=== PATIENT | female | born 1950 | race Caucasian/White ===

== ENCOUNTER 2016-08-01 | Outpatient (CLI) | payer MEDICARE, OTHER | END 2016-08-01 13:03 | disposition critical access hospital (66) | CPT/HCPCS: A0425; A0429 ==

== ENCOUNTER 2016-08-06 11:01 | Inpatient (IN) | payer MEDICARE, OTHER ==
[~2016-08-06 11:01] MED LIST: ceFAZolin 2 GM/50 ML 50 ML IV ONE
[2016-08-06] MEDS ORDERED: LACTATED RINGERS 1,000 ML IV ONE ×2 (11:16→18:13)
[2016-08-06] MEDS ORDERED: INSULIN REGULAR HUMAN 100 UNIT/1 ML 10 ML MDV ONE ×2 (15:19→17:05)
[2016-08-06] MEDS ORDERED: ROPIVACAINE 0.5% PF 20 ML AMPULE EP ONE (18:10)
[2016-08-06] MEDS ORDERED: fentaNYL 250 MCG/5 ML VIAL IVP ONE (18:10)
[2016-08-06] MEDS ORDERED: MIDAZOLAM 2 MG/2 ML VIAL IVP ONE (18:10)
[2016-08-06] MEDS ORDERED: ONDANSETRON 4 MG/2 ML VIAL IVP ONE (18:10)
[2016-08-06] MEDS ORDERED: LIDOCAINE-MPF 2% 5 ML VIAL IM ONE (18:10)
[2016-08-06] MEDS ORDERED: ACETAMINOPHEN 1,000 MG/100 ML VIAL IV ONE (18:10)
[2016-08-06] MEDS ORDERED: PROPOFOL 200 MG/20 ML VIAL IVP ONE (18:10)
[2016-08-06] MEDS ORDERED: KETOROLAC 30 MG/ML VIAL IVP ONE (18:10)
[2016-08-06] MEDS ORDERED: BUPIVACAINE 0.25%-EPI 1:200000 PF 30 ML VIAL SUBQ ONE ×2 (18:11)
[2016-08-06] MEDS ORDERED: LIDOCAINE 1% 50 ML MDV SUBQ ONE ×2 (18:12)
[2016-08-06] MEDS ORDERED: ACETAMINOPHEN 325 MG TABLET PO PRN (19:57)
[2016-08-06] MEDS ORDERED: PROCHLORPERAZINE 10 MG/2 ML VIAL IVP PRN (19:57)
[2016-08-06] MEDS ORDERED: SODIUM CHLORIDE FLUSH 0.9% 10 ML SYRINGE IVP PRN (19:57)
[2016-08-06] MEDS ORDERED: ONDANSETRON 4 MG/2 ML VIAL IVP PRN (19:57)
[2016-08-06] MEDS ORDERED: ACETAMINOPHEN 1,000 MG/100 ML 100 ML IV PRN (19:57)
[2016-08-06] MEDS ORDERED: GLUCAGON 1 MG/ML VIAL SUBQ PRN ×2 (20:02→21:11)
[2016-08-06] MEDS ORDERED: DEXTROSE GEL 37.5 GM TUBE PO PRN ×2 (20:02→21:11)
[2016-08-06] MEDS ORDERED: DEXTROSE 5% 1,000 ML IV PRN ×2 (20:02→21:11)
[2016-08-06] MEDS ORDERED: DEXTROSE 50% ABBOJECT 25 GM/50 ML SYRINGE IVP PRN ×2 (20:02→21:11)
[2016-08-06] MEDS ORDERED: NITROGLYCERIN SL 0.4 MG TABLET SL PRN (20:04)
[2016-08-06] MEDS: SODIUM CHLORIDE 0.9% 1,000 ML IV SCH (21:12)
[2016-08-06] MEDS: ceFAZolin 2 GM/50 ML 50 ML IV SCH (21:12)
[2016-08-06] MEDS: SODIUM CHLORIDE FLUSH 0.9% 10 ML SYRINGE IVP SCH (21:58)
[2016-08-07] MEDS: oxyCOD/ACETAMIN 5 MG/325 MG TABLET PO PRN ×2 (01:31→11:43)
[2016-08-07] MEDS: ceFAZolin 2 GM/50 ML 50 ML IV SCH (04:28)
[2016-08-07] MEDS: SODIUM CHLORIDE 0.9% 1,000 ML IV SCH ×2 (04:28→16:17)
[2016-08-07] MEDS: SODIUM CHLORIDE FLUSH 0.9% 10 ML SYRINGE IVP SCH ×3 (06:13→20:27)
[2016-08-07] MEDS: PANTOPRAZOLE 40 MG TABLET PO SCH (06:55)
[2016-08-07] MEDS: HYDROmorphone 1 MG/ML SYRINGE IVP PRN ×3 (06:57→21:02)
[2016-08-07] MEDS ORDERED: INSULIN GLULISINE SQ SCH (07:00)
[2016-08-07] MEDS ORDERED: INSULIN ASPART 300 UNIT/3 ML PEN SUBQ ONE (08:56)
[2016-08-07] MEDS ORDERED: APIDRA SUBQ ONE (09:00)
[2016-08-07] MEDS ORDERED: NON FORMULARY MED (Omeprazole [Omeprazole] 20 MG) PO SCH (09:00)
[2016-08-07] MEDS ORDERED: METOPROLOL SUCCINATE 25 MG TABLET PO SCH ×2 (09:00→21:00)
[2016-08-07] MEDS ORDERED: ATORVASTATIN 10 MG TABLET PO SCH ×2 (09:00→21:00)
[2016-08-07] MEDS ORDERED: IRBESARTAN 150 MG PO SCH (09:00)
[2016-08-07] MEDS ORDERED: INSULIN GLARGINE 300 UNIT/3 ML PEN SUBQ SCH (09:00)
[2016-08-07] MEDS ORDERED: ROSUVASTATIN 10 MG PO SCH (09:00)
[2016-08-07] MEDS: INSULIN ASPART 300 UNIT/3 ML PEN SUBQ SCH ×4 (09:10→12:58)
[2016-08-07] MEDS: Ubidecarenone [Co Q-10] 100 MG PO SCH (09:11)
[2016-08-07] MEDS: OMEGA-3 ACID ETHYL ESTERS 1 GM CAPSULE PO SCH (09:23)
[2016-08-07] MEDS: MULTIVITAMIN TABLET PO SCH (09:23)
[2016-08-07] MEDS: POLYETHYLENE GLYCOL 3350 17 GM PACKET PO SCH (09:23)
[2016-08-07] MEDS: LOSARTAN 50 MG TABLET PO SCH (09:23)
[2016-08-07] MEDS: amLODIPine 5 MG TABLET PO SCH (09:23)
[2016-08-07] MEDS ORDERED: INSULIN GLULISINE SQ ONE (11:35)
[2016-08-07] MEDS: INSULIN GLULISINE SUBQ SCH (17:11)
[2016-08-08] MEDS: SODIUM CHLORIDE 0.9% 1,000 ML IV SCH ×2 (00:46→12:04)
[2016-08-08] MEDS: oxyCOD/ACETAMIN 5 MG/325 MG TABLET PO PRN ×2 (00:48→12:55)
[2016-08-08] MEDS: SODIUM CHLORIDE FLUSH 0.9% 10 ML SYRINGE IVP SCH (06:25)
[2016-08-08] MEDS: PANTOPRAZOLE 40 MG TABLET PO SCH (06:33)
[2016-08-08] MEDS: INSULIN GLULISINE SUBQ SCH ×2 (08:46→12:03)
[2016-08-08] MEDS: OMEGA-3 ACID ETHYL ESTERS 1 GM CAPSULE PO SCH (08:46)
[2016-08-08] MEDS: LOSARTAN 50 MG TABLET PO SCH (08:47)
[2016-08-08] MEDS: MULTIVITAMIN TABLET PO SCH (08:47)
[2016-08-08] MEDS: amLODIPine 5 MG TABLET PO SCH (08:49)
[2016-08-08] MEDS: POLYETHYLENE GLYCOL 3350 17 GM PACKET PO SCH (08:50)
[2016-08-08] MEDS: Ubidecarenone [Co Q-10] 100 MG PO SCH (08:50)
[2016-08-08] MEDS ORDERED: DOCUSATE SODIUM 250 MG CAPSULE PO SCH (09:00)
[2016-08-08] MEDS ORDERED: INSULIN GLARGINE 300 UNIT/3 ML PEN SUBQ SCH (09:00)
[2016-08-08] MEDS ORDERED: METOPROLOL SUCCINATE 25 MG TABLET PO SCH (09:00)
[2016-08-08] MEDS ORDERED: ESCITALOPRAM 10 MG TABLET PO SCH (09:00)
[2016-08-08] MEDS ORDERED: SENNA 8.6 MG TABLET PO SCH (09:00)
[2016-08-08] MEDS ORDERED: ASPIRIN EC 81 MG TABLET PO SCH (09:00)
[2016-08-08] MEDS ORDERED: INSULIN GLULISINE SQ ONE (11:46)
== END 2016-08-08 12:30 | disposition home or self-care (01) | DRG 494 ==
PROC: 0QSK04Z Reposition Left Fibula with Internal Fixation Device, Open Approach (ICD-10-PCS; principal; 2016-08-06 12:15)
PROC: 0QSH04Z Reposition Left Tibia with Internal Fixation Device, Open Approach (ICD-10-PCS; principal; 2016-08-06 12:15)
DX: S82.852A Displaced trimalleolar fracture of left lower leg, initial encounter for closed fracture (principal); E86.0 Dehydration; E11.9 Type 2 diabetes mellitus without complications; I10 Essential (primary) hypertension; E78.5 Hyperlipidemia, unspecified; E11.65 Type 2 diabetes mellitus with hyperglycemia; I25.10 Atherosclerotic heart disease of native coronary artery without angina pectoris; Z95.5 Presence of coronary angioplasty implant and graft; K21.9 Gastro-esophageal reflux disease without esophagitis; E66.9 Obesity, unspecified; Z87.440 Personal history of urinary (tract) infections; Z79.4 Long term (current) use of insulin; Z79.82 Long term (current) use of aspirin; Z68.33 Body mass index [BMI] 33.0-33.9, adult

== ENCOUNTER 2016-09-28 16:12 | Outpatient (CLI) | payer MEDICARE, OTHER | END 2016-09-28 16:13 | disposition home or self-care (01) | DX: M51.36 Other intervertebral disc degeneration, lumbar region (principal); M47.896 Other spondylosis, lumbar region; M41.86 Other forms of scoliosis, lumbar region ==

== ENCOUNTER 2016-10-21 08:26 | Outpatient (CLI) | payer MEDICARE, OTHER ==
[2016-10-21 08:38] LABS: CREATININE 0.7 mg/dL (0.4-1.0)
--- NOTE | 2016-10-21 18:57 | CT Report ---
CT OF THE LUMBAR SPINE: 10/21/2016 CLINICAL HISTORY: This is a 66-year-old female with left sciatica. COMPARISON: None. TECHNIQUE: CT of the lumbar spine was done with axial, sagittal, and coronal reconstruction images done at 2 mm intervals. FINDINGS: As an incidental finding, a large hiatal hernia is seen in the inferior mediastinum. T10-T11 shows disk space narrowing without significant disk bulge or protrusion. Neural foramen are normal. T11-T12 showed disk space narrowing without significant disk abnormality. Neural foramen appear normal. T12-L1 demonstrates significant disk space narrowing. No significant disk abnormality is noted. Neural foramen appear normal. L1-L2 demonstrates significant disk space narrowing without significant disk bulge or herniation. Neural foramen appear normal. L2-L3 level demonstrates significant disk space narrowing. Mild broad-based disk bulge is noted. This produces a minimal indentation on the adjacent dural sac. Mild posterior spinal ligament thickening. No significant central spinal canal stenosis is noted. Mild narrowing of the facet joints is seen. L3-L4 level demonstrates moderate degree of disk space narrowing. Moderate- sized broad-based disk bulge is noted extending into the neural foramen. Mild posterior spinal ligament thickening is seen. Combination of findings is producing a moderate to severe degree of central spinal canal stenosis. Mild to moderate narrowing of the right neural foramen is seen with mild narrowing of the left neural foramen. Mild osteoarthritis is seen of the facet joints. L4-L5 level demonstrates no significant disk space narrowing. There is mild to moderate broad-based disk bulge with extensive posterior spinal ligament thickening. Combination of findings produces severe central spinal canal stenosis with marked compression of the dural sac. Right neural foramen shows no significant narrowing. Left neural foramen shows mild to moderate narrowing. Facet joints demonstrate a moderate degree of right facet joint narrowing. L5-S1 level demonstrates a minimal broad-based disk bulge. This does not appear to be affecting the adjacent nerve rootlets. Neural foramen bilaterally appear normal. Facet joints show mild osteoarthritis with mild narrowing. IMPRESSION: 1. L3-4 LEVEL DEMONSTRATES A MODERATE TO SEVERE CENTRAL SPINAL CANAL STENOSIS. 2. L4-5 LEVEL DEMONSTRATES SEVERE CENTRAL SPINAL CANAL STENOSIS WITH MARKED COMPRESSION OF THE DURAL SAC. 3. MILD OSTEOARTHRITIS OF THE FACET JOINTS IS NOTED IN THE LUMBAR SPINE. 4. MODERATE-SIZED HIATAL HERNIA IS NOTED WITH THE FUNDUS OF THE STOMACH LOCATED IN THE INFERIOR MEDIASTINUM. In accordance with CT protocol optimization, one or more of the following dose reduction techniques were utilized for this exam: automated exposure control, adjustment of mA and/or KV based on patient size, or use of iterative reconstructive technique. COMMENT: REPORT WAS FAXED TO PATIENT'S HEALTHCARE PROVIDER ON 10/22/2016 AT 8:00 AM. JOB #: [id number] EXT JOB #: [id number] DIANA
== END 2016-10-21 08:27 | disposition home or self-care (01) ==
LOC: DI 08:26
PROVIDERS: ATTEND Family Medicine
DX: M47.896 Other spondylosis, lumbar region (principal); M51.86 Other intervertebral disc disorders, lumbar region; Z79.899 Other long term (current) drug therapy
CPT/HCPCS: 36415; 72131; 82565

== ENCOUNTER 2016-10-28 08:54 | Emergency (ER) | payer MEDICARE, OTHER ==
[2016-10-28 09:12] VITALS: BP 148/78
[2016-10-28] MEDS ORDERED: LIDOCAINE PATCH 5% TOP STA (09:46)
--- NOTE | 2016-10-28 09:50 | ED Physician Documentation ---
History of Present Illness - Stated complaint Stated Complaint: R BUTTOCK PX - Chief complaint Chief Complaint: Back Pain - Additonal information Additional information: hx from pt 66 female R buttock to upper posterior thigh pain has been evaluated for same and had CT L spine showing impingmeennt and has been referred to a psine specialist was intially txed with steroids and oxycodone, steroids made her blood sugar inc and slowed the healing of her ankle wound, now of steroids now pain is worse and not controlled by oxycodone no fever abd pain incont numbness or weakness to ER for pain relief Review of Systems Constitutional: denies: Fever, Chills GI: denies: Abdominal Pain Musculoskeletal: reports: Extremity pain (R buttock region) Endocrine: denies: Easy bruising / bleeding Immunocompromised: denies: Immunocompromised PD PAST MEDICAL HISTORY - Past Medical History Cardiovascular: Hypertension, High cholesterol, Coronary artery disease, Other Respiratory: None Neuro: None Endocrine/Autoimmune: Type 1 diabetes GI: GERD : None HEENT: None Psych: Depression Derm: None - Past Surgical History Past Surgical History: Yes 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 Cardiovascular: Coronary stent - Present Medications Home Medications: Ambulatory Orders Medication Instructions Recorded Confirmed Aspirin [Aspir 81] 162 mg PO DAILY 03/13/13 09/28/16 Insulin Glulisine [Apidra] 3 - 4 unit SQ AC 03/13/13 09/28/16 Irbesartan 150 mg PO BID 03/13/13 09/28/16 Omeprazole 20 mg PO DAILY 03/13/13 09/28/16 Rosuvastatin [Crestor] 10 mg PO DAILY 03/13/13 09/28/16 amLODIPine [Norvasc] 5 mg ORAL DAILY 01/23/16 09/28/16 Escitalopram [Lexapro] 20 mg PO DAILY 08/07/16 09/28/16 Metoprolol Succinate [Toprol Xl] 25 mg PO DAILY 08/07/16 09/28/16 Walker 1 each MC DAILY #1 each 08/07/16 09/28/16 HYDROcod/ACETAM 5/325 [[place] 5/325] 1 tab ORAL Q6HR PRN #60 tablet 08/08/1607/16 Insulin Glargine [Lantus] 21 unit SUBQ DAILY 05/02/17 05/02/17 Gabapentin 300 mg PO QPM PRN #14 capsule 10/28/16 Lidocaine Patch 5% [Lidoderm Patch] 1 each TOP DAILY PRN #10 patch 10/28/16 - Allergies Allergies/Adverse Reactions: Allergies Allergy/AdvReac Type Severity Reaction Status Date / Time Sulfa (Sulfonamide Allergy Rash Verified 10/28/16 09:11 Antibiotics) - Social History Does the pt smoke?: No Smoking Status: Never smoker Does the pt drink ETOH?: Yes Does the pt have substance abuse?: No - POLST Patient has POLST: No PD ED PE NORMAL - Vitals Vital signs reviewed: Yes - Cardiac Cardiac: RRR - Respiratory Respiratory: No respiratory distress, Clear bilaterally - Abdomen Abdomen: Soft, Non tender, Other (no pulsatile mass) - Back Back: No spinal TTP (and no focal swelling or warmth) - Derm Derm: Normal color, Other (some aged brusing /scarring to lateral R though which pt states [facility]) - Extremities Extremities: Other (no deformity, no warmth swelling erythema TTP) - Neuro Neuro: No motor deficit (hip flex, knee ext, foot dorsi plantar and great toe ext all 5/5, nl senasation, patellar DTR 3/4 lois, no clonus, denies saddle anesthesia), No sensory deficit Results - Vitals Vitals: Vital Signs - 24 hr 10/28/16 09:10 Temperature 37.2 C Heart Rate 107 H Respiratory 19 Rate Blood Pressure 148/78 H O2 Saturation 100 Oxygen O2 Source Room air PD MEDICAL DECISION MAKING - ED course ED course: pt does not want to be on steroid again already has oxycodone will add lido patches applied to site of pain 12hr/day and trial of gabapentin for nerve pain Departure - Departure Disposition: Home, Self Care Clinical Impression: Sciatica Qualifiers: Laterality: right Qualified Code(s): M54.31 - Sciatica, right side Condition: Good Instructions: ED Sciatica Follow-Up: Pipo Hankins MD [Primary Care Provider] - Prescriptions: Gabapentin 300 mg PO QPM PRN #14 capsule PRN Reason: nerve pain Lidocaine Patch 5% [Lidoderm Patch] 1 each TOP DAILY PRN #10 patch PRN Reason: Pain Comments: Try the lidocaine patches and the gabapentin. Follow up with your PMD to discuss how those medications work and for any further refills And follow up with the trading specialist as planned And please get your blood pressure rechecked - it was high today
[2016-10-28] MEDS ORDERED: LIDOCAINE PATCH 5% TOP ONE (09:52)
== END 2016-10-28 10:21 | disposition home or self-care (01) ==
LOC: ED 08:54
DX: M54.31 Sciatica, right side (principal); I10 Essential (primary) hypertension; E78.00 Pure hypercholesterolemia, unspecified; I25.10 Atherosclerotic heart disease of native coronary artery without angina pectoris; E10.9 Type 1 diabetes mellitus without complications; Z79.4 Long term (current) use of insulin; K21.9 Gastro-esophageal reflux disease without esophagitis; Z79.82 Long term (current) use of aspirin
CPT/HCPCS: 99283; A9270

== ENCOUNTER 2016-11-09 06:20 | Day surgery (SDC) | payer MEDICARE, OTHER ==
[2016-11-09] MEDS ORDERED: ceFAZolin 2 GM/50 ML 50 ML IV ONE (06:54)
[2016-11-09] MEDS ORDERED: LACTATED RINGERS 1,000 ML IV ONE (07:04)
[2016-11-09 07:36] LABS: BUN - BLOOD UREA NITROGEN 30 mg/dL (6-20); CALCIUM 8.9 mg/dL (8.5-10.3); CARBON DIOXIDE - CO2 26 mmol/L (21-32); CHLORIDE 99 mmol/L (101-111); CREATININE 0.7 mg/dL (0.4-1.0); GFR - MDRD 84 (>89); GLUCOSE 229 mg/dL (70-100); POTASSIUM 4.4 mmol/L (3.5-5.0); SODIUM 135 mmol/L (135-145)
[2016-11-09] MEDS ORDERED: BUPIVACAINE 0.25%-EPI 1:200000 PF 30 ML VIAL SUBQ ONE (07:56)
[2016-11-09 09:19] VITALS: BP 154/51
--- NOTE | 2016-11-09 10:50 | OPERATIVE REPORT ---
DATE OF SURGERY: 11/09/2016 00:00:00 PREOPERATIVE DIAGNOSIS: Left ankle retained hardware and lateral wound breakdown. POSTOPERATIVE DIAGNOSIS: NAME OF PROCEDURE: Left ankle wound debridement of skin, subcutaneous tissue, and bony tract after s yndesmosis screw removal and removal of a secondary screw and medial K-wire. SURGEON: Ryan Rubalcava MD ANESTHESIA: General. INDICATIONS FOR SURGERY: The patient is a 66-year-old who is recovering from a comminuted ankle fract ure treated by ORIF and complicated postoperatively bilateral wound breakdown. The patient has shown granulation and progressive healing of her bone, but she has an exposed syndesmosis screw at the dist al part of her incision and prominence of 2 screws, the syndesmosis screw and the most distal screw i n the plate, which are potentially at risk for breakdown. Additionally, there is a prominent medial K -wire to be removed. DESCRIPTION OF OPERATIVE PROCEDURE: The patient was taken to the operating room, given a general anes thetic in the supine position. Her leg was sterilely prepped and draped in standard fashion. The nargis ent's wound appeared to be granulating well laterally, the wound measuring approximately 3 x 2 cm in size and at the lower part having shiny metal screw head exposed which was the syndesmosis screw back ed out uneventfully. There was not gross purulence and the tract was debrided. The most distal screw in the plate was very prominent and at risk for breakdown so this was removed through a tiny stab inc ision. The medial pin was also removed through a tiny stab incision and extracted and those 2 stab wo unds were closed with interrupted 4-0 nylon. Sterile dressings were applied to the patient's wound, a nd she was taken to recovery room in stable condition. ESTIMATED BLOOD LOSS: Minimal. COMPLICATIONS: None. SPONGE AND NEEDLE COUNTS: Correct. JOB #: [id number] EXT JOB #:[id number]
[2016-11-09] MEDS ORDERED: KETOROLAC 30 MG/ML VIAL IVP ONE (15:35)
[2016-11-09] MEDS ORDERED: PROPOFOL 200 MG/20 ML VIAL IVP ONE (15:35)
[2016-11-09] MEDS ORDERED: MIDAZOLAM 2 MG/2 ML VIAL IVP ONE (15:35)
[2016-11-09] MEDS ORDERED: fentaNYL 100 MCG/2 ML VIAL IVP ONE (15:35)
[2016-11-09] MEDS ORDERED: ONDANSETRON 4 MG/2 ML VIAL IVP ONE (15:35)
[2016-11-09] MEDS ORDERED: DEXAMETHASONE 4 MG/ML VIAL IVP ONE (15:35)
[2016-11-09] MEDS ORDERED: LIDOCAINE-MPF 2% 5 ML VIAL IM ONE (15:35)
== END 2016-11-09 06:21 | disposition home or self-care (01) ==
LOC: SDS 06:20
PROVIDERS: ATTEND Orthopaedic Surgery
PROC: 0QP Lower Bones, Removal (ICD-10-PCS; principal; 2016-11-09 07:30)
DX: T84.84XA Pain due to internal orthopedic prosthetic devices, implants and grafts, initial encounter (principal); S82.852S Displaced trimalleolar fracture of left lower leg, sequela; I10 Essential (primary) hypertension; I25.10 Atherosclerotic heart disease of native coronary artery without angina pectoris; Z95.5 Presence of coronary angioplasty implant and graft; E11.9 Type 2 diabetes mellitus without complications
CPT/HCPCS: 20670; 36415; 80048; 85651; 86140; J0690; J7120

== ENCOUNTER 2016-11-18 16:13 | Outpatient (CLI) | payer MEDICARE, OTHER ==
--- NOTE | 2016-11-18 17:35 | XRAY Preliminary Report ---
Exam: XR Foot 3 View LT IMPRESSION: 1. Osteopenia. 2. Nondisplaced transverse fracture through the second metatarsal base with questionable evidence of fracture healing, possibly subacute. 3. Mild first and second MTP joint osteoarthritis. [facility] SITE ID: [id number]
--- NOTE | 2016-11-18 17:38 | XRAY Report ---
EXAM: LEFT FOOT RADIOGRAPHY EXAM DATE: 11/18/2016 05:01 PM. CLINICAL HISTORY: Injury 11/16/2016. Fall on left foot. Status post ankle surgery in July 2016. COMPARISON: 06/23/2007. TECHNIQUE: 3 views. FINDINGS: Bones: Osteopenic. Transverse linear lucency extending through the base of the second metatarsal on t he frontal and oblique views, with questionable trace adjacent periosteal reaction. Partially imaged ankle fractures post-ORIF. Joints: Normal alignment. Mild joint space loss and subchondral degenerative changes of the first and second MTP joints, compatible with osteoarthritis. Soft Tissues: Swelling overlying the ankle and dorsal foot. IMPRESSION: 1. Osteopenia. 2. Nondisplaced transverse fracture through the second metatarsal base with questionable evidence of fracture healing, possibly subacute. 3. Mild first and second MTP joint osteoarthritis. [facility] Referring Provider Line: [phone] SITE ID: [id number]
--- NOTE | 2016-11-18 17:41 | XRAY Preliminary Report ---
Exam: XR Ankle 3 View LT IMPRESSION: 1. Unchanged alignment of healing trimalleolar fractures post ORIF, with interval removal of K wires. 2. No acute bony abnormality. [facility] SITE ID: [id number]
--- NOTE | 2016-11-18 17:43 | XRAY Report ---
EXAM: LEFT ANKLE RADIOGRAPHY EXAM DATE: 11/18/2016 05:01 PM. CLINICAL HISTORY: Injury 11/16/2016. Fall on left foot. Status post ankle surgery in July 2016. COMPARISON: 11/03/2016, 10/14/2016, 09/08/2016, 08/11/2016. TECHNIQUE: 3 views. FINDINGS: Bones: Osteopenic. Postoperative changes of ORIF for trimalleolar ankle fracture. Interval removal of K wires. A malleable plate and screws along the lateral margin of the distal fibula and a cerclage w calderon traversing the medial malleolar fracture remain in place and are intact. Fracture alignment is un changed. Interval progressive callus formation posterior to the distal tibia and fibula, indicating o ngoing progress towards healing. Joints: Normal alignment. The ankle mortise is symmetric. Soft Tissues: Diffuse soft tissue swelling. IMPRESSION: 1. Unchanged alignment of healing trimalleolar fractures post ORIF, with interval removal of K wires. 2. No acute bony abnormality. [facility] Referring Provider Line: [phone] SITE ID: [id number]
== END 2016-11-18 16:14 | disposition home or self-care (01) ==
LOC: DI 16:13
PROVIDERS: ATTEND Podiatrist
DX: S99.922A Unspecified injury of left foot, initial encounter (principal); S82.852D Displaced trimalleolar fracture of left lower leg, subsequent encounter for closed fracture with routine healing

== ENCOUNTER 2016-12-09 09:28 | Outpatient (CLI) | payer MEDICARE, OTHER ==
--- NOTE | 2016-12-09 12:01 | XRAY Report ---
THREE-VIEW LEFT FOOT: 12/09/2016 CLINICAL INDICATION: Fracture followup. FINDINGS: AP, lateral, oblique views of the left foot are compared to previous films of 11/16/2016. There has been interval healing of the fracture at the base of the 2nd metatarsal, with increased ca llus formation. Osteoarthritic changes are stable. Postoperative changes in the ankle are stable. IMPRESSION: INTERVAL HEALING OF THE FRACTURE AT THE BASE OF THE 2ND METATARSAL, WITH INCREASED CALLU S FORMATION. JOB #: [id number] EXT JOB #:[id number]
== END 2016-12-09 09:29 | disposition home or self-care (01) ==
LOC: DI 09:28
PROVIDERS: ATTEND Podiatrist
DX: S92.322D Displaced fracture of second metatarsal bone, left foot, subsequent encounter for fracture with routine healing (principal)

== ENCOUNTER 2017-02-21 08:00 | Outpatient (CLI) | payer MEDICARE, OTHER | END 2017-02-21 08:01 | disposition home or self-care (01) | LOC: LAB.R 08:00 | PROVIDERS: ATTEND Podiatrist | DX: L03.116 Cellulitis of left lower limb (principal) | CPT/HCPCS: 87070; 87205 ==

== ENCOUNTER 2017-05-10 12:43 | Outpatient (CLI) | payer MEDICARE, OTHER ==
--- NOTE | 2017-05-16 11:52 | Mammography Report ---
EXAMINATION: Digital bilateral screening mammogram 05/10/2017. INDICATION: A 66-year-old with history of late childbearing for screening. COMPARISON: 04/2014, 08/2012, 06/2011, 04/2010. TECHNIQUE: Routine CC and MLO projections were obtained of the breasts. FINDINGS: The breasts again demonstrate heterogeneously dense fibroglandular parenchyma bilaterally. Punctate, typically benign calcifications are present. No suspicious masses, clustered microcalcifications, or regions of architectural distortion are identified. IMPRESSION: Benign findings. RECOMMENDATIONS: Routine annual screening unless otherwise clinically indicated. BIRADS category 2 - Benign findings. STANDARD QUALIFYING STATEMENTS 1. This examination was reviewed with the aid of Computed Aided Detection (CAD). 2. A negative x-ray report should not delay biopsy if a dominant or clinically suspicious mass is present. More than 5% of cancers are not identified by x-ray. 3. Dense breasts may obscure an underlying neoplasm. TD: 05/11/2017 14:42 DIANA
== END 2017-05-10 12:44 | disposition home or self-care (01) ==
LOC: DI 12:43
PROVIDERS: ATTEND Family Medicine
DX: Z12.31 Encounter for screening mammogram for malignant neoplasm of breast (principal)
CPT/HCPCS: 77067

== ENCOUNTER 2017-09-13 12:59 | Emergency (ER) | payer MEDICARE, OTHER ==
--- NOTE | 2017-09-13 13:46 | ED Physician Documentation ---
PD HPI NVD - Stated complaint Stated Complaint: VOMITING/NAUS - Chief complaint Chief Complaint: Abd Pain - History obtained from History obtained from: Patient, Family - History of Present Illness Timing - onset: Today (67-year-old with long-standing type 1 diabetes presents with nausea and about 3 episodes of vomiting since 9 AM. Also some loose stools. No sick contacts or recent travel, no abdominal, chest pain, or shortness of breath. She has a specific concern about atypical ACS given her long-standing diabetes which is not unreasonable, although again she denies redness of breath, chest pain, dizziness. She is actually feeling somewhat better now.) Review of Systems Constitutional: denies: Fever, Chills, Fatigue Cardiac: denies: Chest pain / pressure, Palpitations Respiratory: denies: Dyspnea, Cough GI: denies: Abdominal Pain, Constipation, Hematemesis, Bloody / black stool PD PAST MEDICAL HISTORY - Past Medical History Cardiovascular: Hypertension, High cholesterol, Coronary artery disease, Other Respiratory: None Neuro: None Endocrine/Autoimmune: Type 2 diabetes GI: GERD : None HEENT: None Psych: Depression Musculoskeletal: Osteoarthritis, Chronic back pain Derm: None - Past Surgical History Past Surgical History: Yes 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 Cardiovascular: Coronary stent - Present Medications Home Medications: Ambulatory Orders Medication Instructions Recorded Confirmed Aspirin [Aspir 81] 162 mg PO DAILY 03/13/13 11/09/16 Insulin Glulisine [Apidra] 3 - 4 unit SQ AC 03/13/13 11/09/16 Irbesartan 150 mg PO BID 03/13/13 11/09/16 Omeprazole 20 mg PO DAILY 03/13/13 11/09/16 Rosuvastatin [Crestor] 10 mg PO DAILY 03/13/13 11/09/16 amLODIPine [Norvasc] 5 mg ORAL DAILY 01/23/16 11/09/16 Escitalopram [Lexapro] 20 mg PO DAILY 08/07/16 11/09/16 Metoprolol Succinate [Toprol Xl] 25 mg PO DAILY 08/07/16 11/09/16 Walker [Ultra-Light Rollator] 1 each MC DAILY #1 each 08/07/16 11/04/16 Insulin Glargine [Lantus] 21 unit SUBQ DAILY 09/28/16 11/09/16 Doxycycline Hyclate 50 mg PO BID 11/04/16 11/26/16 Gabapentin 600 mg PO BID 11/26/16 11/26/16 - Allergies Allergies/Adverse Reactions: Allergies Allergy/AdvReac Type Severity Reaction Status Date / Time Sulfa (Sulfonamide Allergy Rash Verified 09/13/17 13:25 Antibiotics) - Social History Does the pt smoke?: No Smoking Status: Never smoker Does the pt drink ETOH?: Yes Does the pt have substance abuse?: No - POLST Patient has POLST: No PD ED PE NORMAL - Vitals Vital signs reviewed: Yes - General General: Alert and oriented X 3, No acute distress - HEENT HEENT: PERRL, EOMI, Pharynx benign - Neck Neck: Supple, no meningeal sign, No bony TTP - Cardiac Cardiac: RRR, No murmur - Respiratory Respiratory: No respiratory distress, Clear bilaterally - Abdomen Abdomen: Normal bowel sounds, Soft, Non tender - Extremities Extremities: No calf tenderness / cord, Other (Mild bilateral pitting pedal edema which is chronic for her.) - Neuro Neuro: Alert and oriented X 3, Normal speech Results - Vitals Vitals: Vital Signs - 24 hr 09/13/17 09/13/17 13:20 14:46 Temperature 36.3 C L Heart Rate 70 69 Respiratory 16 16 Rate Blood Pressure 150/49 H 144/73 H O2 Saturation 100 97 Oxygen O2 Source Room air - EKG (time done) 1337 Rate: Rate (enter#) (68) Rhythm: NSR [place]: Normal Intervals: Normal CT QRS: Normal Ischemia: Normal ST segments Computer interpretation: Agree with computer - Labs Labs: Laboratory Tests 09/13/17 09/13/17 09/13/17 14:12 14:12 14:12 WBC 8.1 RBC 4.49 Hgb 9.7 L Hct 31.3 L MCV 69.7 L MCH 21.6 L MCHC 31.0 L RDW 18.4 H Plt Count 240 MPV 9.6 Neut # 6.7 H Lymph # 1.0 L [place] # 0.3 Eos # 0.0 Baso # 0.1 Absolute Nucleated RBC 0.01 Nucleated RBC % 0.1 Manual Slide Review Indicated WBC Morphology NORMAL APPEARANCE Platelet Estimate NORMAL (130-450,000) Platelet Morphology NORMAL APPEARANCE RBC Morph Micro Appear 1+ TARGET CELLS Sodium 133 L Potassium 4.6 Chloride 100 L Carbon Dioxide 26 Anion Gap 7.0 BUN 24 H Creatinine 0.7 Estimated GFR (MDRD) 83 L Glucose 209 H Calcium 8.6 Total Bilirubin 0.3 AST 22 ALT 15 Alkaline Phosphatase 67 Troponin I < 0.04 Total Protein 7.6 Albumin 3.7 Globulin 3.9 Albumin/Globulin Ratio 0.9 L Lipase 19 L PD MEDICAL DECISION MAKING - ED course ED course: 67-year-old woman with resolving vomiting and loose stools, seems more like a viral process than anything else. She had a specific concern for ACS which is not unreasonable given her comorbidities, but her EKG is nonischemic and her troponin is negative. We did discuss the anemia, but review of her chart shows that this is not an acute process. Departure - Departure Disposition: 01 Home, Self Care Clinical Impression: Nausea & vomiting Qualifiers: Vomiting type: unspecified Vomiting Intractability: non-intractable Qualified Code(s): R11.2 - Nausea with vomiting, unspecified Type I diabetes mellitus Qualifiers: Diabetes mellitus complication status: with hyperglycemia Qualified Code(s): E10.65 - Type 1 diabetes mellitus with hyperglycemia Anemia Qualifiers: Anemia type: unspecified type Qualified Code(s): D64.9 - Anemia, unspecified Condition: Stable Record reviewed to determine appropriate education?: Yes Instructions: ED Nausea Vomiting Comments: Return if worse in any way, or if not better in 24 hours. You are fairly anemic with a hemoglobin of 9.7, a pattern suggesting iron deficiency. Make sure to follow-up with Dr. Hankins and discuss this. Your labs are stable from last year though. Also recheck your blood pressure on follow-up, it was 150/49 here. Discharge Date/Time: 09/13/17 14:46
[2017-09-13 14:20] LABS: BASOPHILS # (AUTO) 0.1 10^3/uL (0.0-0.1); BASOPHILS % (AUTO) 0.9 %; HGB - HEMOGLOBIN 9.7 g/dL (12.0-16.0); LYMPHOCYTES % (AUTO) 12.3 %; MEAN CORPUSCULAR HEMOGLOBIN 21.6 pg (27.0-31.0); MEAN CORPUSCULAR VOLUME 69.7 fL (81.0-99.0); MEAN PLATELET VOLUME 9.6 fL (7.9-10.8); MONOCYTES # (AUTO) 0.3 10^3/uL (0.0-1.0); NEUTROPHILS # (AUTO) 6.7 10^3/uL (1.5-6.6); NEUTROPHILS % (AUTO) 82.8 %; PLT - PLATELET COUNT 240 10^3/uL (130-450); RED BLOOD COUNT 4.49 10^6/uL (4.20-5.40); RED CELL DISTRIBUTION WIDTH 18.4 % (12.0-15.0); WHITE BLOOD COUNT 8.1 x10^3/uL (4.8-10.8)
[2017-09-13 14:30] LABS: ALBUMIN 3.7 g/dL (3.2-5.5); ALBUMIN/GLOBULIN RATIO 0.9 (1.0-2.2); BILIRUBIN,TOTAL 0.3 mg/dL (0.2-1.0); CALCIUM 8.6 mg/dL (8.5-10.3); CREATININE 0.7 mg/dL (0.4-1.0); TOTAL PROTEIN 7.6 g/dL (6.7-8.2)
[2017-09-13 14:47] VITALS: BP 144/73
[2017-09-13 14:47] LABS: PLATELET MORPHOLOGY NORMAL APPEARANCE (NORMAL)
[2017-09-13 14:48] LABS: PLATELET ESTIMATE, MANUAL NORMAL (130-450,000) (NORMAL)
== END 2017-09-13 14:46 | disposition home or self-care (01) ==
LOC: ED 12:59
DX: R11.2 Nausea with vomiting, unspecified (principal); E10.65 Type 1 diabetes mellitus with hyperglycemia; D64.9 Anemia, unspecified; I10 Essential (primary) hypertension; E78.00 Pure hypercholesterolemia, unspecified; I25.10 Atherosclerotic heart disease of native coronary artery without angina pectoris; Z79.4 Long term (current) use of insulin; Z79.82 Long term (current) use of aspirin
CPT/HCPCS: 36415; 80053; 83690; 84484; 85025; 93005; 99283; 99284

== ENCOUNTER 2019-02-01 14:26 | Outpatient (CLI) | payer MEDICARE, OTHER ==
--- NOTE | 2019-02-01 15:25 | Mammography Report ---
Reason: ROUTINE MAMMO Procedure Date: 02/01/2019 Accession Number: [id number] / [id number] Procedure: ATA - Screening Mammo w/Alan CPT Code: FULL RESULT: EXAM: Screening Mammo w/Alan DATE: 02/01/2019 3:10 PM CLINICAL HISTORY: Routine screening TECHNIQUE: (B) - Bilateral CC and MLO views were obtained. COMPARISON: 05/10/2017, 05/16/2014, 08/30/2012 and 07/15/2011 PARENCHYMAL PATTERN: (D) - The breasts demonstrate heterogeneously dense fibroglandular parenchyma bilaterally. FINDINGS: No significant interval change. There are no suspicious masses, calcifications, or areas of distortion. Asymmetric nodular density posterior superior lateral right breast stable. IMPRESSION: Negative examination. BI-RADS category 1. RECOMMENDATION: (ANNUAL) - Recommend routine annual screening mammography. BI-RADS CATEGORY: (1) - Negative. STANDARD QUALIFYING STATEMENTS: 1. This examination was not reviewed with the aid of Computer-Aided Detection (CAD). 2. A negative or benign imaging report should not preclude biopsy if clinically suspicious findings are present. 3. Dense breasts may obscure an underlying neoplasm. 4. This examination was reviewed with the aid of 3D breast imaging (tomosynthesis).
== END 2019-02-01 14:27 | disposition home or self-care (01) ==
LOC: DI 14:26
PROVIDERS: ATTEND Family Medicine
DX: Z12.31 Encounter for screening mammogram for malignant neoplasm of breast (principal)
CPT/HCPCS: 77063; 77067

== ENCOUNTER 2019-02-02 07:45 | Outpatient (CLI) | payer MEDICARE, OTHER ==
[2019-02-02 07:59] LABS: BASOPHILS # (AUTO) 0.1 10^3/uL (0.0-0.1); BASOPHILS % (AUTO) 1.1 %; EOSINOPHILS # (AUTO) 0.2 10^3/uL (0.0-0.7); EOSINOPHILS % (AUTO) 2.6 %; HGB - HEMOGLOBIN 12.1 g/dL (12.0-16.0); LYMPHOCYTES # (AUTO) 1.7 10^3/uL (1.5-3.5); LYMPHOCYTES % (AUTO) 28.6 %; MEAN CORPUSCULAR HEMOGLOBIN 27.1 pg (27.0-31.0); MEAN CORPUSCULAR HGB CONC 31.1 g/dL (32.0-36.0); MEAN PLATELET VOLUME 12.2 fL (7.9-10.8); MONOCYTES # (AUTO) 0.7 10^3/uL (0.0-1.0); MONOCYTES % (AUTO) 10.8 %; NEUTROPHILS # (AUTO) 3.4 10^3/uL (1.5-6.6); NEUTROPHILS % (AUTO) 56.6 %; PLT - PLATELET COUNT 203 10^3/uL (130-450); RED BLOOD COUNT 4.47 10^6/uL (4.20-5.40); RED CELL DISTRIBUTION WIDTH 14.4 % (12.0-15.0); WHITE BLOOD COUNT 6.1 x10^3/uL (4.8-10.8)
[2019-02-02 08:16] LABS: ALBUMIN 3.8 g/dL (3.2-5.5); ALKALINE PHOSPHATASE 70 IU/L (42-121); ALT ALANINE AMINOTRANSFERASE 16 IU/L (10-60); AST ASPARTATE AMINOTRANSFERASE 23 IU/L (10-42); BILIRUBIN,TOTAL 0.6 mg/dL (0.2-1.0); BUN - BLOOD UREA NITROGEN 21 mg/dL (6-20); CALCIUM 8.9 mg/dL (8.5-10.3); CARBON DIOXIDE - CO2 25 mmol/L (21-32); CHLORIDE 106 mmol/L (101-111); CHOL/HDL RATIO 2.7 (<4.4); CHOLESTEROL 179 mg/dL; CREATININE 0.7 mg/dL (0.4-1.0); GFR - MDRD 83 (>89); GLUCOSE 83 mg/dL (70-100); HDL CHOLESTEROL 67 mg/dL; LDL CHOLESTEROL,CALCULATED 101 mg/dL; LDL/HDL RATIO 1.5 (<4.4); SODIUM 141 mmol/L (135-145); TOTAL PROTEIN 7.6 g/dL (6.7-8.2); VLDL CHOLESTEROL 11 mg/dL
[2019-02-02 08:17] LABS: HB2 TOTAL 12.9 g/dL; HEMOGLOBIN A1C 0.78 g/dL; HEMOGLOBIN A1C % 7.7 % (4.6-6.2)
== END 2019-02-02 07:46 | disposition home or self-care (01) ==
LOC: LAB 07:45
PROVIDERS: ATTEND Family Medicine
DX: E11.65 Type 2 diabetes mellitus with hyperglycemia (principal); E11.649 Type 2 diabetes mellitus with hypoglycemia without coma; E78.2 Mixed hyperlipidemia
CPT/HCPCS: 36415; 80053; 80061; 83036; 83721; 85025

== ENCOUNTER 2020-01-11 12:40 | Outpatient (CLI) | payer MEDICARE, OTHER ==
[2020-01-11 13:22] LABS: HB2 TOTAL 10.6 g/dL; HEMOGLOBIN A1C 0.65 g/dL; HEMOGLOBIN A1C % 7.8 % (4.6-6.2)
== END 2020-01-11 12:41 | disposition home or self-care (01) ==
LOC: LAB 12:40
PROVIDERS: ATTEND Family Medicine
DX: E11.65 Type 2 diabetes mellitus with hyperglycemia (principal); I10 Essential (primary) hypertension
CPT/HCPCS: 36415; 83036; 85014

== ENCOUNTER 2020-07-01 07:36 | Outpatient (CLI) | payer MEDICARE, OTHER ==
[2020-07-01 08:03] LABS: BASOPHILS # (AUTO) 0.1 10^3/uL (0.0-0.1); BASOPHILS % (AUTO) 1.5 %; EOSINOPHILS # (AUTO) 0.2 10^3/uL (0.0-0.7); EOSINOPHILS % (AUTO) 2.7 %; HGB - HEMOGLOBIN 7.6 g/dL (12.0-16.0); LYMPHOCYTES # (AUTO) 1.4 10^3/uL (1.5-3.5); LYMPHOCYTES % (AUTO) 20.4 %; MEAN CORPUSCULAR HGB CONC 28.5 g/dL (32.0-36.0); MEAN CORPUSCULAR VOLUME 70.3 fL (81.0-99.0); MONOCYTES # (AUTO) 0.6 10^3/uL (0.0-1.0); MONOCYTES % (AUTO) 9.5 %; NEUTROPHILS # (AUTO) 4.3 10^3/uL (1.5-6.6); NEUTROPHILS % (AUTO) 65.6 %; PLT - PLATELET COUNT 247 10^3/uL (130-450); WHITE BLOOD COUNT 6.6 x10^3/uL (4.8-10.8)
[2020-07-01 08:37] LABS: CALCIUM 8.6 mg/dL (8.5-10.3); CREATININE 0.9 mg/dL (0.4-1.0)
[2020-07-01 08:40] LABS: RBC MORPHOLOGY (MULTIPLE) 2+ HYPOCHROMASIA (NORMAL)
== END 2020-07-01 07:37 | disposition home or self-care (01) ==
LOC: LAB 07:36
PROVIDERS: ATTEND Orthopaedic Surgery Orthopaedic Surgery of the Spine
DX: Z01.812 Encounter for preprocedural laboratory examination (principal)
CPT/HCPCS: 36415; 80048; 85025

== ENCOUNTER 2020-08-14 07:27 | Outpatient (CLI) | payer MEDICARE, OTHER ==
[2020-08-14 08:04] LABS: BASOPHILS # (AUTO) 0.1 10^3/uL (0.0-0.1); BASOPHILS % (AUTO) 1.1 %; EOSINOPHILS # (AUTO) 0.1 10^3/uL (0.0-0.7); EOSINOPHILS % (AUTO) 2.1 %; HCT - HEMATOCRIT 23.9 % (37.0-47.0); LYMPHOCYTES # (AUTO) 1.4 10^3/uL (1.5-3.5); LYMPHOCYTES % (AUTO) 22.6 %; MEAN CORPUSCULAR HEMOGLOBIN 17.9 pg (27.0-31.0); MEAN CORPUSCULAR HGB CONC 27.2 g/dL (32.0-36.0); MEAN CORPUSCULAR VOLUME 65.8 fL (81.0-99.0); MEAN PLATELET VOLUME 10.6 fL (7.9-10.8); MONOCYTES # (AUTO) 0.7 10^3/uL (0.0-1.0); MONOCYTES % (AUTO) 10.5 %; NEUTROPHILS # (AUTO) 3.9 10^3/uL (1.5-6.6); NEUTROPHILS % (AUTO) 63.4 %; NRBC ABSOLUTE COUNT (AUTO) 0.02 x10^3/uL; NUCLEATED RED BLOOD CELLS AUTO 0.3 /100WBC; PLT - PLATELET COUNT 309 10^3/uL (130-450); RED BLOOD COUNT 3.63 10^6/uL (4.20-5.40); WHITE BLOOD COUNT 6.2 x10^3/uL (4.8-10.8)
[2020-08-14 08:09] LABS: HGB - HEMOGLOBIN 6.5 g/dL (12.0-16.0); SLIDE REVIEW? Indicated
[2020-08-14 08:14] LABS: % IRON SATURATION 2 % (20-50); ALBUMIN 3.4 g/dL (3.2-5.5); ALBUMIN/GLOBULIN RATIO 0.9 (1.0-2.2); ALKALINE PHOSPHATASE 55 IU/L (42-121); ALT ALANINE AMINOTRANSFERASE 11 IU/L (10-60); AST ASPARTATE AMINOTRANSFERASE 18 IU/L (10-42); BILIRUBIN,TOTAL 0.4 mg/dL (0.2-1.0); BUN - BLOOD UREA NITROGEN 22 mg/dL (6-20); CALCIUM 8.9 mg/dL (8.5-10.3); CARBON DIOXIDE - CO2 23 mmol/L (21-32); CHLORIDE 99 mmol/L (101-111); CHOL/HDL RATIO 2.5 (<4.4); CHOLESTEROL 160 mg/dL; CREATININE 0.9 mg/dL (0.4-1.0); GFR - MDRD 62 (>89); GLUCOSE 149 mg/dL (70-100); HDL CHOLESTEROL 63 mg/dL; IRON 7 ug/dL (28-170); LDL CHOLESTEROL,CALCULATED 84 mg/dL; LDL/HDL RATIO 1.3 (<4.4); POTASSIUM 4.4 mmol/L (3.5-5.0); SODIUM 135 mmol/L (135-145); TOTAL IRON BINDING CAPACITY 419 ug/dL (250-450); TOTAL PROTEIN 7.3 g/dL (6.7-8.2); TRANSFERRIN 299 mg/dL (192-382); TRIGLYCERIDES 65 mg/dL; VLDL CHOLESTEROL 13 mg/dL
[2020-08-14 08:55] LABS: PLATELET ESTIMATE, MANUAL INCREASED (>450,000) (NORMAL); PLATELET MORPHOLOGY NORMAL APPEARANCE (NORMAL)
[2020-08-14 11:58] LABS: ESTIMATED AVERAGE GLUCOSE 177 mg/dL (70-100); HEMOGLOBIN A1c% 7.8 % (4.27-6.07)
== END 2020-08-14 07:28 | disposition home or self-care (01) ==
LOC: LAB 07:27
PROVIDERS: ATTEND Family Medicine
DX: E11.65 Type 2 diabetes mellitus with hyperglycemia (principal); E11.649 Type 2 diabetes mellitus with hypoglycemia without coma; E78.2 Mixed hyperlipidemia; I10 Essential (primary) hypertension; I25.83 Coronary atherosclerosis due to lipid rich plaque; Z79.899 Other long term (current) drug therapy
CPT/HCPCS: 36415; 80053; 80061; 83036; 83540; 83721; 84466; 85025

== ENCOUNTER 2020-08-14 11:50 | Emergency (ER) | payer MEDICARE, OTHER ==
[2020-08-14 12:30] LABS: HCT - HEMATOCRIT 24.7 % (37.0-47.0)
[2020-08-14 12:32] LABS: HGB - HEMOGLOBIN 6.9 g/dL (12.0-16.0)
--- NOTE | 2020-08-14 12:33 | ED Physician Documentation ---
History of Present Illness - Stated complaint Stated Complaint: ABNORMAL LABS SENT BY - Chief complaint Chief Complaint: General - Additonal information Additional information: 70-year-old female sent to the emergency department for evaluation of anemia. She reports that she had screening labs obtained today in order to preop her for a spinal surgery scheduled in a few days time. Her provider notified her that her hemoglobin was 6.5 and requested she come to the emergency department. Patient reports that for many months she has been feeling fatigued and has to take her time doing normal activities. She denies chest pain or shortness of breath. Denies melena or hematochezia. She reports that she had a colonoscopy about 10 years ago and was told that she did not need to follow-up for an additional 10 years. She is a non-smoker. Rare alcohol use. She denies abdominal pain or hematuria Review of Systems Constitutional: reports: Fatigue, Weight Loss. denies: Fever, Chills, Myalgias, Sweats Eyes: reports: Loss of vision Ears: reports: Reviewed and negative Nose: reports: Reviewed and negative Throat: reports: Reviewed and negative Cardiac: reports: Reviewed and negative Respiratory: reports: Reviewed and negative GI: denies: Abdominal Pain, Nausea, Vomiting, Hematemesis, Bloody / black stool : denies: Dysuria, Hematuria Skin: denies: Rash, Lesions Musculoskeletal: reports: Back pain Neurologic: denies: Generalized weakness, Focal weakness, Numbness, Difficulty speaking, Near syncope, Syncope, Seizure, Altered mental status, LOC PD PAST MEDICAL HISTORY - Past Medical History Cardiovascular: Hypertension, High cholesterol, Coronary artery disease, Other Respiratory: None Endocrine/Autoimmune: Type 2 diabetes GI: GERD : None HEENT: None Psych: Depression Musculoskeletal: Osteoarthritis, Chronic back pain Derm: None - Past Surgical History Past Surgical History: Yes General: Appendectomy 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 Cardiovascular: Coronary stent - Present Medications Home Medications: Ambulatory Orders Medication Instructions Recorded Confirmed Aspirin [Aspir 81] 162 mg PO DAILY 03/13/13 08/14/20 Insulin Glulisine [Apidra] 3 - 4 unit SQ AC 03/13/13 08/14/20 Irbesartan 150 mg PO BID 03/13/13 08/14/20 Omeprazole 20 mg PO DAILY 03/13/13 08/14/20 Rosuvastatin [Crestor] 10 mg PO DAILY 03/13/13 08/14/20 amLODIPine [Norvasc] 5 mg ORAL DAILY 01/23/16 08/14/20 Escitalopram [Lexapro] 20 mg PO DAILY 08/07/16 08/14/20 Metoprolol Succinate [Toprol Xl] 25 mg PO DAILY 08/07/16 08/14/20 Walker [Ultra-Light Rollator] 1 each MC DAILY #1 each 08/07/16 08/14/20 Insulin Glargine [Lantus] 21 unit SUBQ DAILY 09/28/16 08/14/20 Ferrous Sulfate 325 mg PO DAILY #30 08/14/20 - Allergies Allergies/Adverse Reactions: Allergies Allergy/AdvReac Type Severity Reaction Status Date / Time Sulfa (Sulfonamide Allergy Rash Verified 08/14/20 11:59 Antibiotics) - Social History Does the pt smoke?: No Smoking Status: Never smoker Does the pt drink ETOH?: Yes Does the pt have substance abuse?: No - POLST Patient has POLST: No PD ED PE EXPANDED - General General: Alert, Well developed/nourished - Neck Neck: Supple w/out meningeal sx - Cardiac Cardiac: Regular Rate, Regular Rhythm, Radial strong equal, Cap refill < 2 sec - Respiratory Respiratory: Clear to ausultation lois. No: Distress, Labored - Abdomen Abdomen: Normal Bowel sounds. No: Tender to palpation - Rectal Rectal: Normal Tone (Brown stool on gloved finger. Hemoccult pending) - Derm Derm: Normal color, Warm and dry. No: Rash, Petecchiae, Purpura - Neuro Neuro: Alert and Oriented X 3, CNII-XII intact - GCS Eye Opening: Spontaneous Motor: Obeys Commands Verbal: Oriented Total: 15 Results - Vitals Vitals: Vital Signs - 24 hr 08/14/20 08/14/20 08/14/20 11:56 13:35 13:42 Temperature 36.4 C L 36.8 C 36.7 C Heart Rate 84 75 78 Respiratory 20 15 15 Rate Blood Pressure 134/50 H 120/49 L 124/41 L O2 Saturation 100 08/14/20 08/14/20 08/14/20 13:52 14:14 14:30 Temperature 36.7 C 37.0 C 36.6 C Heart Rate 75 73 72 Respiratory 15 16 15 Rate Blood Pressure 124/41 L 127/45 L 157/34 H O2 Saturation 97 08/14/20 08/14/20 15:06 15:08 Temperature 36.3 C L 36.3 C L Heart Rate 73 72 Respiratory 15 15 Rate Blood Pressure 144/51 H 144/51 H O2 Saturation 97 Oxygen O2 Source Room air - Labs Labs: Microbiology 08/14/20 12:30 Occult Blood - Final Stool Laboratory Tests 08/14/20 08/14/20 08/14/20 07:50 12:21 12:21 Hgb 6.9 L* Hct 24.7 L PT INR Sodium Potassium Chloride Carbon Dioxide Anion Gap BUN Creatinine Estimated GFR (MDRD) Glucose Calcium Ferritin Total Bilirubin AST ALT Alkaline Phosphatase Total Protein Albumin Globulin Albumin/Globulin Ratio Lipase Urine Color Urine Clarity Urine pH Ur Specific [place] Urine Protein Urine Glucose (UA) Urine Ketones Urine Occult Blood Urine Nitrite Urine Bilirubin Urine Urobilinogen Ur Leukocyte Esterase Ur Microscopic Review Urine Culture Comments Blood Type A POSITIVE Blood Type Recheck A POSITIVE Antibody Screen NEGATIVE Crossmatch IS Only See Detail 08/14/20 08/14/20 08/14/20 12:50 12:50 12:50 Hgb Hct PT 12.6 INR 1.1 Sodium 133 L Potassium 4.5 Chloride 101 Carbon Dioxide 21 Anion Gap 11.0 BUN 24 H Creatinine 0.9 Estimated GFR (MDRD) 62 L Glucose 199 H Calcium 8.7 Ferritin 3.8 L Total Bilirubin 0.5 AST 21 ALT 12 Alkaline Phosphatase 64 Total Protein 7.3 Albumin 3.6 Globulin 3.7 Albumin/Globulin Ratio 1.0 Lipase 21 L Urine Color Urine Clarity Urine pH Ur Specific [place] Urine Protein Urine Glucose (UA) Urine Ketones Urine Occult Blood Urine Nitrite Urine Bilirubin Urine Urobilinogen Ur Leukocyte Esterase Ur Microscopic Review Urine Culture Comments Blood Type Blood Type Recheck Antibody Screen Crossmatch IS Only 08/14/20 13:23 Hgb Hct PT INR Sodium Potassium Chloride Carbon Dioxide Anion Gap BUN Creatinine Estimated GFR (MDRD) Glucose Calcium Ferritin Total Bilirubin AST ALT Alkaline Phosphatase Total Protein Albumin Globulin Albumin/Globulin Ratio Lipase Urine Color YELLOW Urine Clarity CLEAR Urine pH 6.0 Ur Specific [place] 1.010 Urine Protein NEGATIVE Urine Glucose (UA) NEGATIVE Urine Ketones NEGATIVE Urine Occult Blood NEGATIVE Urine Nitrite NEGATIVE Urine Bilirubin NEGATIVE Urine Urobilinogen 0.2 (NORMAL) Ur Leukocyte Esterase NEGATIVE Ur Microscopic Review NOT INDICATED Urine Culture Comments NOT INDICATED Blood Type Blood Type Recheck Antibody Screen Crossmatch IS Only - Rads (name of study) CT abd Radiology: Final report received (Moderate size hiatal hernia. No obvious mass or adenopathy. Prominent stool in the rectum. No free fluid in the abdomen or pelvis.) PD MEDICAL DECISION MAKING - ED course Complexity details: reviewed results, re-evaluated patient, considered differential, d/w patient ED course: 70-year-old female presents emergency department for evaluation of anemia noted on screening labs that were obtained this morning for a planned surgery in the upcoming few days. Initial hemogram showed hemoglobin of 6.7. Patient was noted to be anemic with last labs also in June. She denied any melena, hematochezia, met emesis or hematuria. Reported a colonoscopy 10 years ago. Patient has appropriate vital signs for age without tachycardia dizziness confusion or syncope. Patient's guaiac stool was negative. Patient we did do a CT of the abdomen and pelvis that did not reveal any worrisome findings significant lymphadenopathy. Patient did receive 1 unit of PRBCs here in the emergency unit. Her labs are also notable for iron deficiency anemia (Ferritin 7 and a Iron sat of 2%) therefore she did receive 200 mg of iron dextran. She will be discharged with a prescription for elemental iron. Patient is to continue to follow-up her anemia with her primary care provider. She may benefit from out patient Iron infusions. Emergent return precautions were discussed. Departure - Departure Disposition: 01 Home, Self Care Clinical Impression: Anemia Qualifiers: Anemia type: iron deficiency Iron deficiency anemia type: inadequate dietary iron intake Qualified Code(s): D50.8 - Other iron deficiency anemias Condition: Stable Record reviewed to determine appropriate education?: Yes Instructions: Iron Chewable Tablets, ED Anemia Iron Deficiency Follow-Up: Pipo Hankins MD [Primary Care Provider] - Prescriptions: Ferrous Sulfate 325 mg PO DAILY #30 Comments: You were seen today in the ED for anemia. This is a low blood count. Your testing today shows that you are iron deficient. This prevents the bone marrow from makeing red blodo cells appropriately. Your stool test for blood was negative. The CT of your abdomen did nto show any worrisome findings. However you should have a repeat colonoscopy within the next few months. In order to address the iron deficiency, you were given iron here in the emergency department will be discharged with a prescription. It is important to discuss with Dr. Hankins this ED visit. You may benefit from outpatient IV iron infusions. Schedule an appointment with him as soon as possible Iron therapy can cause constipation. Therefore if you find that you go more than 1 day without having a bowel movement I do recommend that you take [id number] MiraLAX until you have 2-3 watery bowel movements. Iron therapy can often also cause black stools. Return to the emergency department if you have fevers, any fainting episodes, a racing heart, or feel that your symptoms are not improving at home.
[2020-08-14] MEDS ORDERED: IOVERSOL 320 100 ML VIAL IVP ONE ×2 (12:56→13:23)
[2020-08-14 12:59] LABS: INR 1.1 (0.8-1.2); PT - PROTHROMBIN TIME 12.6 secs (9.9-12.6)
[2020-08-14 13:10] LABS: ALBUMIN 3.6 g/dL (3.2-5.5); BILIRUBIN,TOTAL 0.5 mg/dL (0.2-1.0); CALCIUM 8.7 mg/dL (8.5-10.3); CREATININE 0.9 mg/dL (0.4-1.0); POTASSIUM 4.5 mmol/L (3.5-5.0); TOTAL PROTEIN 7.3 g/dL (6.7-8.2)
[2020-08-14] MEDS ORDERED: IRON DEXTRAN 200 MG in SODIUM CHLORIDE 0.9% 100ML 100 ML IV ONE (13:11)
[2020-08-14 13:32] LABS: BILIRUBIN,URINE NEGATIVE (NEGATIVE); GLUCOSE, URINE (UA) NEGATIVE (NEGATIVE); KETONES,URINE (UA) NEGATIVE (NEGATIVE); LEUKOCYTE ESTERASE, URINE NEGATIVE (NEGATIVE); NITRITE,URINE NEGATIVE (NEGATIVE); OCCULT BLOOD,URINE NEGATIVE (NEGATIVE); PROTEIN,URINE NEGATIVE (NEGATIVE); UROBILINOGEN,URINE 0.2 (NORMAL) E.U./dL (NORMAL)
--- NOTE | 2020-08-14 13:32 | CT Report ---
PROCEDURE: Abdomen/Pelvis W INDICATIONS: anemia CONTRAST: IV CONTRAST: Optiray 320 ml: 100 PO CONTRAST: *NO PO CONTRAST TECHNIQUE: After the administration of intravenous contrast, 5 mm thick sections acquired from the diaphragms to the symphysis. 5 mm thick coronal and sagittal reformats were acquired. For radiation dose reducti on, the following was used: automated exposure control, adjustment of mA and/or kV according to nargis ent size. COMPARISON: CT lumbar spine 10/21/2016. FINDINGS: Image quality: Excellent. ABDOMEN: Lung bases: Lung bases are clear. Heart size is normal. Moderate size hiatal hernia. Hernia size is similar dating back to 2017. Trace fluid within the hernia sac. Solid organs: Liver and spleen are normal in size and enhancement. No focal lesion. Gallbladder is decompressed. Biliary system is non dilated. Pancreas enhances normally. No adrenal nodules. Kidn eys demonstrate normal size and enhancement, without hydronephrosis. Peritoneum and bowel: No small bowel obstruction. No obvious mass or area of colonic wall thickening. The appendix is not identified. Prominent stool in the rectum. No free fluid or air. Nodes and vessels: No retroperitoneal or mesenteric adenopathy by size criteria. Aorta and inferior vena cava are normal in size. Circumferential calcified atherosclerotic plaque. Moderate plaque at the celiac artery origin. DARIUS plaque. Miscellaneous: No ventral hernias. PELVIS: Genitourinary: Bladder and uterus are unremarkable. Miscellaneous: No inguinal hernias or adenopathy. Bones: No suspicious bony lesions. No vertebral body compression fractures. Extensive multilevel DD D. IMPRESSION: 1. Moderate size hiatal hernia. Trace fluid within the hernia sac. 2. No obvious mass. No adenopathy. 3. Prominent stool in the rectum. No free fluid in the abdomen or pelvis. Reviewed by: Anshul Church MD on 08/14/2020 12:31 PM RHIANNA Approved by: Anshul Church MD on 08/14/2020 12:31 PM AKANGELES Station ID: [id number]
[2020-08-14 13:33] LABS: CLARITY,URINE CLEAR (CLEAR)
[2020-08-14 16:04] VITALS: BP 135/43
== END 2020-08-14 16:50 | disposition home or self-care (01) ==
LOC: ED 11:50
DX: D50.8 Other iron deficiency anemias (principal); Z79.4 Long term (current) use of insulin; E11.649 Type 2 diabetes mellitus with hypoglycemia without coma; E78.2 Mixed hyperlipidemia; I10 Essential (primary) hypertension; I25.83 Coronary atherosclerosis due to lipid rich plaque; Z79.899 Other long term (current) drug therapy
CPT/HCPCS: 36415; 36430; 74177; 80053; 80061; 81003; 82272; 82728; 83036; 83540; 83690; 84466; 85014; 85018; 85025; 85610; 86850; 86900; 86901; 86920; 96365; 99283; 99285; J1750; P9016; Q9967; 81001; 83721; 87086

== ENCOUNTER 2020-09-11 07:43 | Outpatient (CLI) | payer MEDICARE, OTHER ==
[2020-09-11 08:21] LABS: BASOPHILS # (AUTO) 0.1 10^3/uL (0.0-0.1); BASOPHILS % (AUTO) 1.5 %; EOSINOPHILS # (AUTO) 0.1 10^3/uL (0.0-0.7); EOSINOPHILS % (AUTO) 2.1 %; HCT - HEMATOCRIT 33.5 % (37.0-47.0); LYMPHOCYTES # (AUTO) 1.5 10^3/uL (1.5-3.5); LYMPHOCYTES % (AUTO) 21.8 %; MEAN CORPUSCULAR HEMOGLOBIN 22.5 pg (27.0-31.0); MEAN CORPUSCULAR HGB CONC 29.9 g/dL (32.0-36.0); MEAN CORPUSCULAR VOLUME 75.3 fL (81.0-99.0); MONOCYTES # (AUTO) 0.6 10^3/uL (0.0-1.0); MONOCYTES % (AUTO) 9.3 %; NEUTROPHILS # (AUTO) 4.3 10^3/uL (1.5-6.6); NEUTROPHILS % (AUTO) 64.8 %; PLT - PLATELET COUNT 203 10^3/uL (130-450); RED BLOOD COUNT 4.45 10^6/uL (4.20-5.40); WHITE BLOOD COUNT 6.7 x10^3/uL (4.8-10.8)
[2020-09-11 08:38] LABS: % IRON SATURATION 40 % (20-50); ALBUMIN 3.6 g/dL (3.2-5.5); ALBUMIN/GLOBULIN RATIO 1.1 (1.0-2.2); ALKALINE PHOSPHATASE 69 IU/L (42-121); ALT ALANINE AMINOTRANSFERASE 14 IU/L (10-60); AST ASPARTATE AMINOTRANSFERASE 20 IU/L (10-42); BILIRUBIN,TOTAL 0.5 mg/dL (0.2-1.0); BUN - BLOOD UREA NITROGEN 27 mg/dL (6-20); CALCIUM 8.9 mg/dL (8.5-10.3); CARBON DIOXIDE - CO2 25 mmol/L (21-32); CHLORIDE 103 mmol/L (101-111); CHOL/HDL RATIO 2.5 (<4.4); CHOLESTEROL 162 mg/dL; CREATININE 0.8 mg/dL (0.4-1.0); GFR - MDRD 71 (>89); GLUCOSE 176 mg/dL (70-100); HDL CHOLESTEROL 65 mg/dL; IRON 141 ug/dL (28-170); LDL CHOLESTEROL,CALCULATED 83 mg/dL; LDL/HDL RATIO 1.3 (<4.4); POTASSIUM 4.9 mmol/L (3.5-5.0); SODIUM 136 mmol/L (135-145); TOTAL IRON BINDING CAPACITY 354 ug/dL (250-450); TRANSFERRIN 253 mg/dL (192-382); TRIGLYCERIDES 68 mg/dL; VLDL CHOLESTEROL 14 mg/dL
[2020-09-11 08:42] LABS: T4 (THYROXINE) 8.68 ug/dL (6.09-12.23)
[2020-09-11 08:46] LABS: THYROID STIMULATING HORMONE 1.88 uIU/mL (0.34-5.60)
[2020-09-11 08:48] LABS: SLIDE REVIEW? Indicated
[2020-09-11 12:13] LABS: ESTIMATED AVERAGE GLUCOSE 137 mg/dL (70-100); HEMOGLOBIN A1c% 6.4 % (4.27-6.07)
== END 2020-09-11 07:44 | disposition home or self-care (01) ==
LOC: LAB 07:43
PROVIDERS: ATTEND Family Medicine
DX: E11.65 Type 2 diabetes mellitus with hyperglycemia (principal); E16.2 Hypoglycemia, unspecified; E78.2 Mixed hyperlipidemia; I10 Essential (primary) hypertension; Z79.899 Other long term (current) drug therapy
CPT/HCPCS: 36415; 80053; 80061; 83036; 83540; 83721; 84436; 84443; 84466; 84480; 85025